=== PATIENT | female | born 1955 | race Asian ===

== ENCOUNTER 2019-02-06 10:13 | Observation (INO) | payer OTHER ==
[~2019-02-06] VITALS: Ht 154.9 cm; Wt 53.1 kg
--- NOTE | 2019-02-06 10:13 | NUR ---
Patient BIBA BLS, transferred to bed 11. RN evaluating patient at bedside.
[2019-02-06 10:15] VITALS: BP 109/41
--- NOTE | 2019-02-06 10:15 | NUR ---
63 Y/O FEMALE EDILIA FROM [facility] [place] AFTER RECEIVING DIALYSIS, PER EMS PATIENT COMPLETED DIALYSIS AND WAS W/C ASSISTED TO FRONT, RESEARCH PROGRAM MANAGER WHO PICKS UP PATIENT STATED PATIENT WAS NOT ACTING RIGHT AND NORMALLY IS AWAKE AND ALERT. PT ARRIVED AOX1 TO NAME, AROUSABLE TO PAINFUL STIMULI HX DIALYSIS M/W/F, HTN RX: SEE MEDICATION REC.
--- NOTE | 2019-02-06 10:27 | NUR ---
Dr. Andrea evaluating patient at bedside.
[2019-02-06] MEDS ORDERED: NEBI5TAB4 PO (10:49)
[2019-02-06] MEDS ORDERED: FERR325E14 PO (10:49)
[2019-02-06] MEDS ORDERED: AMLO10TA PO (10:49)
[2019-02-06] MEDS ORDERED: BACL10TA4 PO (10:49)
[2019-02-06] MEDS ORDERED: CLOP75TA55 PO (10:49)
[2019-02-06] MEDS ORDERED: GABA100C PO (10:49)
[2019-02-06] MEDS ORDERED: MULT-1469 PO (10:49)
[2019-02-06] MEDS ORDERED: LOSA50TA66 PO (10:49)
[2019-02-06] MEDS ORDERED: MECL-272 PO (10:49)
[2019-02-06] MEDS ORDERED: CLON0.1T42 PO (10:49)
[2019-02-06] MEDS ORDERED: ATOR40TA PO (10:49)
[2019-02-06] MEDS ORDERED: DIPH25TA53 PO (10:49)
[2019-02-06 10:54] LABS: HEMATOCRIT 32.5 % (36-48); MEAN CORPUSCULAR HEMOGLOBIN 32 pg (27-31); MEAN CORPUSCULAR HGB CONC 34 g/dL (33-37); MEAN CORPUSCULAR VOLUME 95.4 fL (80-94); PLATELET COUNT (AUTO) 109 K/uL (140-450); RED BLOOD CELL COUNT(AUTO) 3.41 MIL/uL (4.20-5.40); RED CELL DISTRIBUTION WIDTH 17.1 % (11.6-13.7); WHITE BLOOD COUNT (AUTO) 2.5 K/uL (4.8-10.8)
--- NOTE | 2019-02-06 10:54 | NUR ---
PT. TAKEN TO CT.
--- NOTE | 2019-02-06 11:04 | NUR ---
Patient returned from CT scan. RN re-evaluating patient at bedside.
[2019-02-06 11:08] LABS: ANION GAP 10.5 (8-16); CARBON DIOXIDE 33.7 mmol/L (21-32); CHLORIDE 102 mmol/L (98-107); CREATININE 3.7 mg/dL (0.6-1.3); GFR ARICAN-AMERICAN 16 mL/min (>90); GLUCOSE 118 mg/dL (74-106); POTASSIUM 3.2 mmol/L (3.5-5.1); SODIUM SERUM 143 mmol/L (136-145); UREA NITROGEN, BLOOD 16 mg/dL (7-18)
[2019-02-06 11:11] LABS: ACETAMINOPHEN < 0.5 ug/ml (10-30); ALBUMIN 3.1 g/dL (3.4-5.0); ASPARTATE AMINOTRANSFERASE 29 U/L (15-37); TOTAL BILIRUBIN 1.2 mg/dL (0.0-1.0)
[2019-02-06 11:12] LABS: SALICYLATE < 2.8 mg/dL (2.8-20.0)
--- NOTE | 2019-02-06 11:18 | NUR ---
PT. AMBULATED WITH ASSISTANCE TO THE BATHROOM. PATIENT HAD FORMED, BROWN STOOL.
[2019-02-06 11:41] LABS: EOSINOPHILS % (MANUAL) 12 % (0-4); LYMPHOCYTES % (MANUAL) 7 % (20-46); MONOCYTES % (MANUAL) 2 % (5-12)
--- NOTE | 2019-02-06 11:46 | NUR ---
Dr. Andrea re-evaluating patient at bedside.
--- NOTE | 2019-02-06 12:49 | NUR ---
Pt. awake and answering questions. Dr. Andrea at bedside evaluating patient.
--- NOTE | 2019-02-06 13:41 | NUR ---
DR EMANUEL AT BEDSIDE WITH PATIENT
[2019-02-06 15:23] LABS: BILIRUBIN,URINE 1+ (NEGATIVE); BLOOD, URINE 3+ (NEGATIVE); LEUKOCYTE ESTERASE ,URINE TRACE (NEGATIVE); NITRITE, URINE POSITIVE (NEGATIVE); UGLUCOSE TRACE (NEGATIVE)
[2019-02-06 15:24] LABS: APPEARANCE,URINE HAZY (CLEAR); COLOR,URINE YELLOW (YELLOW)
[2019-02-06 15:27] LABS: RBC,URINE 0 /HPF (0-5); WBC,URINE 0-5 /HPF (0-5)
[2019-02-06] MEDS ORDERED: MAGNESIUM OXIDE 400 MG TAB PO PRN (16:10)
[2019-02-06] MEDS ORDERED: IPRATROPIUM 0.02% 0.5 MG/2.5 ML NEBU INH PRN (16:10)
[2019-02-06] MEDS ORDERED: DOCUSATE SODIUM 250 MG GELCAP PO PRN (16:10)
[2019-02-06] MEDS ORDERED: cloNIDine 0.1 MG TAB PO PRN (16:10)
[2019-02-06] MEDS ORDERED: BACLOFEN 10 MG TAB PO PRN (16:10)
[2019-02-06] MEDS ORDERED: HYDROcodone/APAP 5/325 MG 1 TAB TAB PO PRN ×2 (16:10)
[2019-02-06] MEDS ORDERED: POTASSIUM CHLORIDE 40 MEQ, LIDOCAINE 1% 25 MG in NACL 0.9% 250 ML IV PRN (16:10)
[2019-02-06] MEDS ORDERED: SODIUM PHOSPHATE 118 ML ENEM RC PRN (16:10)
[2019-02-06] MEDS ORDERED: MAG SULF 2000 MG/WATER PREMIX 50 ML IV PRN (16:10)
[2019-02-06] MEDS ORDERED: ZOLPIDEM 5 MG TAB PO PRN (16:10)
[2019-02-06] MEDS ORDERED: LORazepam 2 MG/ML VIAL IVP PRN (16:10)
[2019-02-06] MEDS ORDERED: MECLIZINE 25 MG TAB PO PRN (16:10)
[2019-02-06] MEDS ORDERED: guaiFENesin DM 200/20 MG-10 ML 10 ML UDC PO PRN (16:10)
[2019-02-06] MEDS ORDERED: POTASSIUM CHLORIDE 10 MEQ TABER PO PRN (16:10)
[2019-02-06] MEDS ORDERED: diphenhydrAMINE 50 MG/ML VIAL IVP PRN (16:10)
[2019-02-06] MEDS ORDERED: ALUMINUM HYD/MAG/SIMETHICONE 30 ML UDC PO PRN (16:10)
[2019-02-06] MEDS ORDERED: ACETAMINOPHEN 325 MG TAB PO PRN (16:10)
[2019-02-06] MEDS ORDERED: BISACODYL 10 MG SUPP RC PRN (16:10)
[2019-02-06] MEDS ORDERED: MORPHINE SULFATE 2 MG/ML SYR IVP PRN (16:10)
[2019-02-06] MEDS ORDERED: ALBUTEROL 0.083% 2.5 MG/3 ML NEBU INH PRN (16:10)
[2019-02-06] MEDS ORDERED: ACETAMINOPHEN 650 MG SUPP RC PRN (16:10)
[2019-02-06] MEDS ORDERED: ONDANSETRON 4 MG/2 ML VIAL IVP PRN (16:10)
--- NOTE | 2019-02-06 16:30 | NUR ---
Patient will be admitted to care of [facility]. Admited to TELE. Will go to room 118. Belongings list completed. Report to CARMELLA ALICEA.
[2019-02-06 16:35] VITALS: BP 144/44
--- NOTE | 2019-02-06 16:35 | NUR ---
PATIENT ARRIVED UNIT VIA GURNEY ACCOMPANIED BY ER NURSE STEFAN. TRANSFERRED PATIENT TO BED AND POSITIONED PATIENT COMFORTABLY. APPLIED TELE MONITOR. PATIENT AAOX2, TO NAME AND PLACE. PATIENT IS CALM AND COOPERATIVE. RESPIRATION EVEN AND UNLABORED ON 3LPM VIA NC. DENIED PAIN. NO SIGNS OF DISTRESS NOTED. IV ON LFA 20G, CLEAN AND INTACT, SL. AV SHUNT ON LEFT ARM, SIGN POSTED FOR NO BLOOD PRESSURE AND VENIPUNCTURE. FARIDEH CATH ON L ANTERIOR CHEST, PT ON HD M,W, AND F. SKIN CLEAN AND DRY. PATIENT IS CONTINENT AND UNABLE TO AMBULATE WITH GAIT WEAKNESS. ORIENTED PT AND ASTRID TO ROOM, INSTRUCTED PATIENT AND ASTRID ON HOW TO USE THE CALL LIGHT, BED REMOTE, TV, TELEPHONE, BATHROOM AND LIGHTS, BOTH VERBALIZED UNDERSTANDING. CHANGED PT INTO YELLOW GOWN, SOCKS, AND APPLIED YELLOW ARM BAND. VITAL SIGNS TAKEN AND MRSA NARES COLLECTED. SAFETY MEASURES IN PLACE. BED IN LOW POSITION AND CALL LIGHT WITHIN REACH. INSTRUCTED PATIENT AND ASTRID TO USE THE CALL LIGHT FOR ANY ASSISTANCE AND BOTH AWARE.
--- NOTE | 2019-02-06 17:25 | NUR ---
ADMISSION INFOR PROVIDED BY PATIENT'S ASTRID AT BEDSIDE. PATIENT AWAKE AND RESTING ON BED AT THIS TIME. DENIED PAIN AND DIZZINESS. NO SIGNS OF DISTRESS NOTED. SAFETY MEASURES IN PLACE. TELE MONITOR ATTACHED. BED IN LOW POSITION AND CALL LIGHT WITHIN REACH. INSTRUCTED PATIENT AND ASTRID TO USE THE CALL LIGHT FOR ANY ASSISTANCE AND BOTH AWARE.
--- NOTE | 2019-02-06 19:24 | NUR ---
ENDORSED PATIENT AT BEDSIDE TO ACCOUNT EXECUTIVE NURSE FOR CONTINUITY OF CARE. PATIENT AWAKE AND SITTING UP ON CHAIR.NO SIGNS OF DISTRESS NOTED. PATIENT IS IN STABLE CONDITION. ASTRID BY PATIENT' SIDE. TELE MONITOR ATTACHED. SAFETY MEASURES IN PLACE. BED IN LOW POSITION AND CALL LIGHT WITHIN REACH.
--- NOTE | 2019-02-06 19:30 | NUR ---
RECEIVED PT FROM CARMELLA RN PT IS AAOX4 AMBULATES WITH AUTO DESIGN CHECKER OLD AV SHUN ON LEFT ARM FARIDEH CATH FOR DIALYSIS ON RT UPPER CHEST, HL ON RT FA PATENT INITIAL ASSESSMENT DONE DENIES ANY PAIN OR DISCOMFORT.
[2019-02-06 20:00] VITALS: BP 128/56
[2019-02-06] MEDS: GABAPENTIN 100 MG CAP PO SCH (21:00)
--- NOTE | 2019-02-06 21:30 | NUR ---
PT MEDIC GIVEN ORDEDR RELATIVES AT BED SIDE PT COOPERATIVE TO TAKE HER ORAL MEDICATION, ON TELEMETRY SR
[2019-02-07] VITALS: BP 146/48
--- NOTE | 2019-02-07 01:30 | NUR ---
AFTER PAIN MEDIC GIVEN PT SLEEPS QUIET ON TELMETRYSR NOT DISTRESS N;OTED
[2019-02-07 04:00] VITALS: BP 157/63
--- NOTE | 2019-02-07 04:00 | NUR ---
PT REPOSITIONED , SLEEPING WELL NOT DISTRESS NOTED ON TELEMETRY SR 1 AV BLOCK
--- NOTE | 2019-02-07 06:06 | NUR ---
PT DOES NOT COMPLAINT OF ANY DISCOMFORT AT THIS TIE ON TELMETRY SR , PT WILL BE ENDORSED TO DAY SHIFT NURSE FOR CONTINUITY OF CARE .
[2019-02-07 06:59] LABS: ANION GAP 9.2 (8-16); CARBON DIOXIDE 34.5 mmol/L (21-32); POTASSIUM 4.7 mmol/L (3.5-5.1)
[2019-02-07 07:09] LABS: BASOPHILS # (AUTO) 0.1 K/uL (0.00-0.22); BASOPHILS % (AUTO) 0.8 % (0.0-2.0); EOSINOPHILS # (AUTO) 0.9 K/uL (0-0.4); EOSINOPHILS % (AUTO) 8.2 % (0.0-4.0); HEMATOCRIT 32.3 % (36-48); HEMOGLOBIN 10.8 g/dL (12.0-16.0); LYMPHOCYTES % (AUTO) 9.6 % (20.5-51.1); MEAN CORPUSCULAR HEMOGLOBIN 33 pg (27-31); MEAN CORPUSCULAR HGB CONC 34 g/dL (33-37); MEAN CORPUSCULAR VOLUME 97.4 fL (80-94); MONOCYTES # (AUTO) 0.9 K/uL (0.8-1.0); MONOCYTES % (AUTO) 8.6 % (1.7-9.3); NEUTROPHILS # (AUTO) 7.7 K/uL (1.8-7.7); NEUTROPHILS % (AUTO) 72.8 % (42.2-75.2); PLATELET COUNT (AUTO) 107 K/uL (140-450); RED BLOOD CELL COUNT(AUTO) 3.32 MIL/uL (4.20-5.40); RED CELL DISTRIBUTION WIDTH 17.7 % (11.6-13.7); WHITE BLOOD COUNT (AUTO) 10.6 K/uL (4.8-10.8)
--- NOTE | 2019-02-07 07:10 | NUR ---
RECEIVED REPORT FROM BARBARA RN. PT AMBULATING IN ROOM. AAOX4 NO S/S OF ACUTE DISTRESS. PT DENIES PAIN IV SITE PATENT AND INTACT. CALL LIGHT WITHIN REACH. SAFETY MEASURES ENSURED.
[2019-02-07 07:31] LABS: CREATININE 5.7 mg/dL (0.6-1.3)
[2019-02-07 08:00] VITALS: BP 133/57
--- NOTE | 2019-02-07 08:35 | NUR ---
PATIENT HAS BEEN SCREENED AND CATEGORIZED MODERATE NUTRITION RISK. PATIENT WILL BE SEEN WITHIN 3-5 DAYS OF ADMISSION. 02/09/19[address]
[2019-02-07] MEDS ORDERED: NON-FORMULARY ITEM (Clopidogrel Bisulfate (Clopidogrel) 75 MG) PO SCH (09:00)
[2019-02-07] MEDS ORDERED: CLOPIDOGREL 75 MG TAB PO SCH (09:00)
[2019-02-07] MEDS ORDERED: VIT-B COMP/VIT-C/FOLIC ACID 1 TAB PO SCH (09:00)
[2019-02-07] MEDS ORDERED: amLODIPine 5 MG TAB PO SCH (09:00)
[2019-02-07] MEDS ORDERED: LOSARTAN 50 MG TAB PO SCH (09:00)
[2019-02-07] MEDS ORDERED: NEBIVOLOL HCL 5 MG PO SCH (09:00)
[2019-02-07] MEDS ORDERED: ATORVASTATIN 20 MG TAB PO SCH (09:00)
[2019-02-07] MEDS: GABAPENTIN 100 MG CAP PO SCH (09:23)
--- NOTE | 2019-02-07 10:52 | NUR ---
PT SLEEPING IN BED. NO S/S OF ACUTE DISTRESS. PT DENIES PAIN. CALL LIGHT WITHIN REACH. SAFETY MEASURES ENSURED. WILL CONTINUE TO MONITOR.
[2019-02-07 11:27] VITALS: BP 127/65
--- NOTE | 2019-02-07 11:28 | NUR ---
DISCHARGE INSTRUCTIONS PROVIDED TO PATIENT AND . PT BEING DISCHARGED HOME. BOTH VERBALIZED UNDERSTANDING. NO S/S OF ACUTE DISTRESS. PT DENIES PAIN. PT STATES SHE NEEDS TO SLEEP A BIT BEFORE GOING HOME. WILL CONTINUE TO MONITOR.
--- NOTE | 2019-02-07 12:06 | NUR ---
IV REMOVED. TIP INTACT. PT WHEELED TO FRONT LOBBY.
--- NOTE | 2019-02-07 13:38 | NUR ---
SW attempted to conducted assessment with patient. Patient was discharged.
[2019-02-07] MEDS ORDERED: METOPROLOL 25 MG TAB PO SCH (21:00)
== END 2019-02-07 12:06 | disposition home or self-care (01) ==
LOC: MED 10:13 → MTU 15:55
PROVIDERS: ADMIT Internal Medicine Pulmonary Disease; ATTEND Internal Medicine Pulmonary Disease
DX: R55 Syncope and collapse (principal); E78.5 Hyperlipidemia, unspecified; E11.22 Type 2 diabetes mellitus with diabetic chronic kidney disease; I12.0 Hypertensive chronic kidney disease with stage 5 chronic kidney disease or end stage renal disease; N18.6 End stage renal disease; Z99.2 Dependence on renal dialysis; M54.9 Dorsalgia, unspecified; G89.29 Other chronic pain
CPT/HCPCS: 36415; 70450; 71045; 80048; 80053; 81001; 85025; 87081; 87086; 93005; 94760; 99285; C1758; G0378; G0480; G0482; Q0092; J7613; J7644